=== PATIENT | female | born 1990 ===

== ENCOUNTER 2018-04-23 13:38 | Emergency (ER) | payer OTHER ==
[~2018-04-23] VITALS: Ht 157.5 cm; Wt 70.3 kg
[2018-04-23] MEDS ORDERED: ZITHROMAX TRI-500 MG PO (14:59)
[2018-04-23] MEDS ORDERED: TUSSI PRES-B L120 M1 PO (14:59)
== END 2018-04-23 15:44 | disposition home or self-care (01) ==
LOC: ER 13:38
DX: J06.9 Acute upper respiratory infection, unspecified (principal)